=== PATIENT | female | born 1955 | race Caucasian/White ===

== ENCOUNTER 2021-12-16 11:53 | Emergency (ER) | payer OTHER, BC ==
[2021-12-16 12:02] VITALS: BP 142/88; PULSE 68; RESP 18; TEMP 99; BMI 26.5
[2021-12-16] MEDS ORDERED: ONDANSETRON *ODT* 4 MG TABLET SL ONE (12:10)
[2021-12-16] MEDS ORDERED: MECLIZINE HCL 25 MG TABLET (FP) PO ONE ×2 (12:11→14:14)
[2021-12-16] MEDS ORDERED: MECLIZINE HCL 25 MG TABLET (FP) ONE ×2 (12:14→14:17)
[2021-12-16] MEDS ORDERED: ONDANSETRON *ODT* 4 MG TABLET ONE (12:14)
[2021-12-16 12:52] LABS: HEMATOCRIT 37.2 % (32.4-45.2); HEMOGLOBIN 13.1 G/dL (10.7-15.3); MCH 27.4 pg (25.7-33.7); MCHC 35.3 g/dl (32.0-36.0); MEAN CELL VOLUME 77.6 fl (80-96); MEAN PLT VOLUME 8.3 fl (7.5-11.1); PLATELET COUNT 173.3 10^3/uL (134-434); RBC 4.79 10^6/uL (3.60-5.2); RDW 16.6 % (11.6-15.6); WHITE BLOOD COUNT 6.2 10^3/uL (4.0-10.8)
[2021-12-16 13:01] LABS: ALBUMIN 3.6 g/dl (3.4-5.0); BILIRUBIN,TOTAL 0.6 mg/dl (0.2-1); CALCIUM 9.2 mg/dl (8.5-10); CREATININE 0.7 mg/dl (0.55-1.3); TOT PROT 6.6 g/dl (6.4-8.2)
[2021-12-16 16:02] LABS: PLATELET ESTIMATE ADEQUATE
[2021-12-16 16:04] LABS: ANISOCYTOSIS 1+
== END 2021-12-16 15:16 | disposition home or self-care (01) ==
LOC: FER 11:53
DX: R42 Dizziness and giddiness (principal)
CPT/HCPCS: 36415; 80053; 85025; 99283-25; Q0162

== ENCOUNTER 2022-10-06 14:06 | Emergency (ER) | payer OTHER, BC ==
[2022-10-06] MEDS ORDERED: morphine CARPU-JECT 2 MG/1 ML DISP.SYRIN IVPUSH ONE (14:10)
[2022-10-06] MEDS ORDERED: morphine SULFATE 4 MG/ML VIAL ONE (14:23)
[2022-10-06 14:27] VITALS: TEMP 97.9; BMI 28.0
[2022-10-06 14:53] LABS: HEMATOCRIT 39.4 % (32.4-45.2); HEMOGLOBIN 12.9 G/dL (10.7-15.3); MCH 25.8 pg (25.7-33.7); MCHC 32.8 g/dl (32.0-36.0); MEAN CELL VOLUME 78.7 fl (80-96); MEAN PLT VOLUME 9.2 fl (7.5-11.1); PLATELET COUNT 177.3 10^3/uL (134-434); RBC 5.01 10^6/uL (3.60-5.2); RDW 17.4 % (11.6-15.6); WHITE BLOOD COUNT 8.7 10^3/uL (4.0-10.8)
[2022-10-06 14:56] LABS: INR 1.07 (0.83-1.09); PROTHROMBIN TIME (PATIENT) 12.4 SEC (9.7-13.0)
[2022-10-06 15:18] LABS: ALBUMIN 4.3 g/dl (3.4-5.0); BILIRUBIN,TOTAL 0.5 mg/dl (0.2-1); BLOOD UREA NITROGEN 20.6 mg/dl (7-18); CALCIUM 9.6 mg/dl (8.5-10.1); CREATININE 0.8 mg/dl (0.6-1.3); POTASSIUM 3.7 mmol/L (3.5-5.1); SGOT/AST 20.3 U/L (15-37); SGPT/ALT 13.1 U/L (7-52); TOT PROT 6.7 g/dl (6.4-8.2)
[2022-10-06] MEDS ORDERED: ONDANSETRON 4 MG/2 ML VIAL IVPUSH ONE (15:39)
[2022-10-06] MEDS ORDERED: ONDANSETRON 4 MG/2 ML VIAL ONE (16:04)
[2022-10-06] MEDS ORDERED: KETAMINE HCL 200 MG/20 ML VIAL IVPUSH ONE (16:05)
[2022-10-06] MEDS ORDERED: LIDOCAINE HCL 1%, 10 MG/ML (50 mL VIAL) INF ONE (16:19)
[2022-10-06] MEDS ORDERED: LIDOCAINE HCL 1%, 10 MG/ML (20ML VIAL) ONE (16:20)
[2022-10-06] MEDS ORDERED: KETAMINE HCL 200 MG/20 ML VIAL ONE (16:52)
[2022-10-06] MEDS ORDERED: METOCLOPRAMIDE HCL INJECTION 10 MG/2 ML VIAL IVPUSH ONE (20:17)
[2022-10-06] MEDS ORDERED: METOCLOPRAMIDE HCL INJECTION 10 MG/2 ML VIAL ONE (20:19)
[2022-10-06 20:45] VITALS: RESP 18
[2022-10-06 20:51] VITALS: BP 138/76; PULSE 74
== END 2022-10-06 21:01 | disposition home or self-care (01) ==
LOC: FER 14:06
PROC: 3E033GC Introduction of Other Therapeutic Substance into Peripheral Vein, Percutaneous Approach (ICD-10-PCS; principal; 2022-10-06)
PROC: 3E033GC Introduction of Other Therapeutic Substance into Peripheral Vein, Percutaneous Approach (ICD-10-PCS; 2022-10-06)
PROC: 3E033GC Introduction of Other Therapeutic Substance into Peripheral Vein, Percutaneous Approach (ICD-10-PCS; 2022-10-06)
PROC: 3E033GC Introduction of Other Therapeutic Substance into Peripheral Vein, Percutaneous Approach (ICD-10-PCS; 2022-10-06)
DX: S62.002A Unspecified fracture of navicular [scaphoid] bone of left wrist, initial encounter for closed fracture (principal); S43.005A Unspecified dislocation of left shoulder joint, initial encounter; S42.202A Unspecified fracture of upper end of left humerus, initial encounter for closed fracture; W17.2XXA Fall into hole, initial encounter; Y93.01 Activity, walking, marching and hiking
CPT/HCPCS: 36415; 71045-TC-FY; 73030-TC-LT-FY; 73070-TC-LT-FY; 73090-TC-LT-FY; 73110-TC-LT-FY; 80053; 85027; 85610; 86850; 86900; 86901; 99284-25